=== PATIENT | female | born 1970 | race American Indian/Alaskan Native ===

== ENCOUNTER 2016-08-16 09:16 | Day surgery (SDC) | payer BC ==
[2016-07-24 11:48] VITALS: BMI 27.1
[2016-08-16] MEDS ORDERED: ceFAZolin IV 2 gm in Dextrose 1 GM/50 ML BAG IVPB ONE (14:04)
[2016-08-16] MEDS ORDERED: Lactated Ringer's 1,000 ML IV ONE ×3 (14:10→15:10)
[2016-08-16] MEDS ORDERED: Midazolam 2 MG/2 ML VIAL ONE (14:14)
[2016-08-16] MEDS ORDERED: Propofol 10 mg/ml Inj (20 ML) ONE ×2 (14:14→15:40)
[2016-08-16] MEDS ORDERED: HYDROmorphone 0.5 mg/0.5 ml ISec IVP PRN (15:56)
[2016-08-16] MEDS ORDERED: Bupivacaine HCl 0.25% PF (10 ml) Inj ONE (16:47)
--- NOTE | 2016-08-16 17:08 | PCM.ANESB7 ---
Adductor Canal Block - Adductor Canal Block Date of Procedure: 08/16/16 Anesthiologist: Hunter Pre-Procedure Diagnosis: s/p right knee arthroscopy lateral meniscus repair Post-Procedure Diagnosis: s/p right knee arthroscopy lateral meniscus repair Procedure Performed: Adductor Canal Block Right - Procedure Adductor Canal Block: The procedure was explained to the patient that it is for the post-operative pain management. Consent was obtained after a thorough discussion with the patient regarding the benefits and possible complications of local anesthetic adductor canal block of the femoral nerve. Standard monitors were applied to the patient. Time-out was held with the PACU nurse to confirm the appropriate block. After applying supplemental oxygen, the patient was placed in supine position with and the operative leg was flexed slightly at the knee and externally rotated as needed, and was kept anatomically stable. The mid-thigh of the right lower extremity was exposed. The ultrasound transducer was then applied transversely along the medial aspect, about midway down the thigh and the femoral artery and vein were identified in appropriate relation with the sartorius muscle. At this time, the femoral nerve was visualized lateral to the femoral artery within the canal. After thorough identification, this area area was prepped with Chloroprep solution. At this point, a #22 gauge Stimuplex 4-inch needle was inserted in-plane in a [id number] orientation, and advanced toward the femoral nerve. Advancement was performed carefully under constant direct ultrasound visualization. After negative aspiration, 5cc of 0.25%Bupivacaine was injected and this was followed with 25cc of 0.25% Bupivacaine. Negative intermittent aspiration, no heme or paresthesia. Under ultrasound guidance the local anesthetics were observed spreading around the femoral nerve. The needle was removed intact and sterile dressing was applied. The patient had stable vital signs, was conscious and in no apparent distress. The patient tolerated the femoral nerve block well with stable vital signs
[2016-08-16 18:06] VITALS: TEMP 97.8
[2016-08-16 18:46] VITALS: BP 120/65; PULSE 75; RESP 20; O2SAT 99
--- NOTE | 2016-08-16 19:14 | PCM.SURG1 ---
Surgeon's Initial Post Op Note - Surgeon's Notes Surgeon: Anai Cheung MD Shipping Agent: None Type of Anesthesia: General Endo, [facility] Pre-Operative Diagnosis: Right knee #1 lateral meniscal tear. #2 synovitis. # 3 chondromalacia Operative Findings: Right knee #1 lateral meniscal tear (anterior horn complex tear/ posterior horn peripheral tbig-[id number]-[id number] seperation). #2 medial meniscal tear (anterior horn complex tear near anterior root). #3 anterior impingement from hypertrophic anterior inter-meniscal ligament. #4 synovitis and symptomatic plica. #5 hypertrophic fat pad. #6 medial femoral condyle full thickness area of cartilage loss at anterior aspect of MFC measuring [id number]. 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 #2 medial meniscal tear (anterior horn complex tear near anterior root). #3 anterior impingement from anterior inter-meniscal ligament. #4 synovitis and symptomatic plica. #5 hypertrophic fat pad. #6 medial femoral condyle full thickness area of cartilage loss at anterior aspect of MFC measuring [id number]. 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 #2 partial medial menisectomy. #3 extensive synovectomy and debridement including fat pad debridement/synovectomy/ resection medial plica/ resection of anterior intermeniscal ligament. #4 chondroplasty patella. #5 microfracture medial femoral condyle full thickness cartilage defect Specimen/Specimens Removed: Specimen= none. Complications= none. Tourniquet time= 0min. Implants= Linvatec all inside meniscal repair Sequence system, 8 implants in total for LM repair Estimated Blood Loss: EBL {In ML}: 5 Blood Products Given: N/A Drains Used: No Drains Post-Op Condition: Good Date of Surgery/Procedure: 08/16/16 Time of Surgery/Procedure: 17:00
== END 2016-08-16 18:40 | disposition home or self-care (01) ==
LOC: C.SDS 09:16
PROVIDERS: ATTEND Student in an Organized Health Care Education/Training Program
DX: S83.271A Complex tear of lateral meniscus, current injury, right knee, initial encounter (principal); M67.861 Other specified disorders of synovium, right knee; M94.261 Chondromalacia, right knee
CPT/HCPCS: 64447; J0171; J0690; J1170; J2250; J2704; J3010; J7120

== ENCOUNTER 2017-04-01 16:30 | Emergency (ER) | payer BC ==
[2017-04-01 16:30] VITALS: BMI 27.1
[2017-04-01] MEDS ORDERED: Sodium Chloride 0.9% 1,000 ML IV ONE (17:46)
--- NOTE | 2017-04-01 17:52 | C.PDOC ---
History Of Present Illness 46 y/o female with history of Anemia and DVT on no anticoagulation presents to ED with complaints of vaginal bleeding "for few months" with associated mild suprapubic pain and weakness. Patient denies fever, chills, nausea, vomiting, vaginal discharge, back pain or any other complaints at this time. Time Seen by Provider: 04/01/17 17:33 Chief Complaint (Nursing): Female Genitourinary History Per: Patient History/Exam Limitations: no limitations Onset/Duration Of Symptoms: Days Current Symptoms Are (Timing): Still Present Past Medical History Reviewed: Historical Data, Nursing Documentation, Vital Signs Vital Signs: Last Vital Signs Temp 98.2 F 04/01/17 18:30 Pulse 70 04/01/17 18:30 Resp 20 04/01/17 18:30 BP 142/87 04/01/17 18:30 Pulse Ox 100 04/01/17 20:49 - Medical History PMH: Anemia, Deep Vein Thrombosis (3 yrs ago), Gall Bladder Disease Surgical History: Cholecystectomy - [facility] Procedures OTHER SUTURE OF TENDON (01/04/14) Family History: States: No Known Family Hx - Social History Hx Alcohol Use: No Hx Substance Use: No - Immunization History Hx Tetanus Toxoid Vaccination: Yes Hx Influenza Vaccination: No Hx Pneumococcal Vaccination: No Review Of Systems Constitutional: Negative for: Fever, Chills Gastrointestinal: Positive for: Abdominal Pain. Negative for: Nausea, Vomiting Genitourinary: Positive for: Vaginal Bleeding. Negative for: Dysuria Musculoskeletal: Negative for: Back Pain Skin: Negative for: Rash Physical Exam - Physical Exam Appears: Non-toxic, No Acute Distress Skin: Warm, Dry, No Rash Head: Atraumatic, Normacephalic Eye(s): bilateral: Conjunctiva Pale Oral Mucosa: Moist Neck: Normal ROM, Supple Cardiovascular: Rhythm Regular Respiratory: Normal Breath Sounds, No Rales, No Rhonchi, No Wheezing Gastrointestinal/Abdominal: Soft, Tenderness (Mild suprpaubic), No Guarding, No Rebound, Other (Multiple incision to abdomen) Back: No CVA Tenderness Extremity: Normal ROM, Capillary Refill (<2 seconds) Neurological/Psych: Oriented x3 ED Course And Treatment - Laboratory Results Result Diagrams: 04/01/17 18:12 04/01/17 18:12 O2 Sat by Pulse Oximetry: 100 (RA) Pulse Ox Interpretation: Normal Medical Decision Making Medical Decision Making: r/o anemia, fibroids - labs imaging pending pt reassesed sleeping in nad, declines pelvic exam. h/h stable. us shows fibroids, no tachycardia, well appearing b/p stable. advise outpt f/u and return precautions Disposition - Disposition Disposition: HOME/ ROUTINE Disposition Time: 20:49 Condition: STABLE Additional Instructions: follow up with [email or web address].[email or web address] eturn to er with worsening symptoms or concerns. Instructions: Dysfunctional Uterine Bleeding (ED), Uterine Fibroids (ED) Forms: Palette ([place]an) - Clinical Impression Clinical Impression: Fibroids, Vaginal bleeding - Scribe Statement The provider has reviewed the documentation as recorded by the [facility] [place] All medical record entries made by the Byron were at my direction and personally dictated by me. I have reviewed the chart and agree that the record accurately reflects my personal performance of the history, physical exam, medical decision making, and the department course for this patient. I have also personally directed, reviewed, and agree with the discharge instructions and disposition.
[2017-04-01 17:56] VITALS: O2SAT 100
[2017-04-01] MEDS ORDERED: Sodium Chloride 0.9% 1,000 ML ONE (18:00)
[2017-04-01 18:03] LABS: HCG,QUALITATIVE URINE NEGATIVE (NEGATIVE)
[2017-04-01 18:12] LABS: SQUAMOUS EPITHIAL 19 /hpf (0-5); URINE BILIRUBIN NEGATIVE (NEGATIVE); URINE BLOOD 3+ (NEGATIVE); URINE CLARITY Hazy (Clear); URINE COLOR Yellow (YELLOW); URINE GLUCOSE (UA) NORMAL (Normal); URINE LEUKOCYTE ESTERASE TRACE Leu/uL (Negative); URINE NITRATE NEGATIVE (NEGATIVE); URINE PROTEIN 1+ mg/dL (NEGATIVE); URINE UROBILINOGEN NORMAL mg/dL (0.2-1.0)
[2017-04-01 18:21] LABS: BASO # 0.1 K/uL (0.0-0.2); BASO % 0.9 % (0.0-2.0); EOS # 0.2 K/uL (0.0-0.7); EOS % 3.3 % (0.0-4.0); HEMOGLOBIN 10.2 g/dL (11.0-16.0); LYMPH # 2.9 K/uL (1.0-4.3); LYMPH % 44.2 % (20.0-40.0); MEAN CELL VOLUME 88.4 fL (81.0-99.0); MEAN CORPUSCULAR HEMOGLOBIN 30.4 pg (27.0-31.0); MEAN CORPUSCULAR HGB CONC 34.4 g/dL (33.0-37.0); MEAN PLATELET VOLUME 7.2 fL (7.2-11.7); MONO # 0.6 K/uL (0.0-0.8); MONO % 8.4 % (0.0-10.0); NEUT # 2.9 K/uL (1.8-7.0); NEUT % 43.2 % (50.0-75.0); NRBC % 0.1 % (0.0-2.0); RBC 3.37 Mil/uL (3.80-5.20); RED CELL DISTRIBUTION WIDTH 14.8 % (11.5-14.5); WHITE BLOOD COUNT 6.6 K/uL (4.8-10.8)
[2017-04-01 18:28] LABS: INR 1.1; PROTHROMBIN TIME 12.1 SECONDS (9.7-12.2)
[2017-04-01 18:32] LABS: ALB/GLOB RATIO 1.1 (1.0-2.1); ALBUMIN 4.1 g/dL (3.5-5.0); ALT/SGPT 20 U/L (9-52); AST/SGOT 18 U/L (14-36); BLOOD UREA NITROGEN 11 mg/dL (7-17); CALCIUM 9.1 mg/dl (8.6-10.4); GFR AFRICAN-AMERICAN > 60; GFR NON-AFRICAN AMERICAN > 60
[2017-04-01 18:35] VITALS: RESP 20
--- NOTE | 2017-04-01 20:38 | US ---
EXAM: US Pelvis Complete, Transabdominal CLINICAL HISTORY: 46 years old, female; Signs and symptoms; Other: Vag bleed since lmp; Prior surgery; Surgery date: 6+ months; Surgery type: C-sections; Additional info: Vb TECHNIQUE: Real-time transabdominal pelvic ultrasound (complete) with image documentation. COMPARISON: No relevant prior studies available. FINDINGS: Limitations: Body habitus. Uterus/cervix: Uterus measures 12.1 x 5.2 x 6.3 cm in size. Heterogeneous uterus. Two uterine masses, larger measuring 1.5 x 1.5 x 1.9 cm. Endometrium: 0.8 cm in thickness. Probable nabothian cysts. Right ovary: Not visualized. Left ovary: 2.4 x 1.2 x 2.0 cm in size. No mass. Normal flow. Free fluid: No significant free fluid. Bladder: Unremarkable as visualized. IMPRESSION: 1. Probable fibroid uterus. 2. Incidental/non-acute findings are described above. EXAM: US Pelvis, Transvaginal CLINICAL HISTORY: 46 years old, female; Signs and symptoms; Other: Vag bleed since lmp; Prior surgery; Surgery date: 6+ months; Surgery type: C-sections; Additional info: Vb TECHNIQUE: Real-time transvaginal pelvic ultrasound (complete) with image documentation. Transvaginal imaging was used for better evaluation of the endometrium and adnexa. COMPARISON: No relevant prior studies available. FINDINGS: Limitations: Body habitus. Uterus/cervix: Uterus measures 12.1 x 5.2 x 6.3 cm in size. Heterogeneous uterus. Two uterine masses, larger measuring 1.5 x 1.5 x 1.9 cm. Endometrium: 0.8 cm in thickness. Probable nabothian cysts. Right ovary: Not visualized. Left ovary: 2.4 x 1.2 x 2.0 cm in size. No mass. Normal flow. Free fluid: No significant free fluid. Bladder: Empty bladder which cannot be evaluated with this probe.
[2017-04-01 20:59] VITALS: BP 136/89; PULSE 67; TEMP 98.1
== END 2017-04-01 20:58 | disposition home or self-care (01) ==
LOC: C.ER 16:30
DX: D25.9 Leiomyoma of uterus, unspecified (principal); N93.9 Abnormal uterine and vaginal bleeding, unspecified
CPT/HCPCS: 76830; 76856; 80053; 81001; 84703; 85025; 85610; 85730; 86850; 86900; 99284; J7040